=== PATIENT | male | born 1970 | race Caucasian/White ===

== ENCOUNTER → 2020-01-22 | Outpatient (CLI) | payer OTHER ==
[~2020-01-22] MED LIST: AUGMENTIN 875875 MG PO; CHOLESTEROL MED; CORDROL20 MG PO; FENOFIBRATE160 MG PO; FLUOXETINE10 MG PO; LISINOPRIL20 MG PO; MOTRIN800 MG PO; MULTIPLE VITAMI1 TAB PO; PRAVACHOL40 MG PO; VITAMIN D1000 IU PO; ZOFRAN ODT8 MG PO
== END | disposition home or self-care (01) ==
LOC: COVID19 11:03
PROVIDERS: ATTEND Physician Assistant
DX: Z20.828 Contact with and (suspected) exposure to other viral communicable diseases (principal); J06.9 Acute upper respiratory infection, unspecified; R52 Pain, unspecified

== ENCOUNTER → 2020-07-26 | Outpatient (CLI) | payer OTHER | END | disposition home or self-care (01) | LOC: LAB 07:18 → US 07:30 | PROVIDERS: ATTEND Physician Assistant | DX: R74.8 Abnormal levels of other serum enzymes (principal) ==

== ENCOUNTER → 2021-08-18 | Outpatient (CLI) | payer OTHER ==
[2021-08-18 08:01] LABS: TOTAL PROTEIN 7.2 gm/dL (6.4-8.2)
== END | disposition home or self-care (01) ==
LOC: LAB 07:07
PROVIDERS: ATTEND Physician Assistant
DX: E78.00 Pure hypercholesterolemia, unspecified (principal); R74.8 Abnormal levels of other serum enzymes

== ENCOUNTER → 2022-04-30 | Outpatient (CLI) | payer OTHER | END | disposition home or self-care (01) | LOC: CARD 08:00 | PROVIDERS: ATTEND Physician Assistant | DX: I10 Essential (primary) hypertension (principal) ==